=== PATIENT | female | born 1970 ===

== ENCOUNTER → 2024-02-14 16:06 | Outpatient (REF) | payer OTHER, SELFPAY | LOC: CLINIC 16:06 | PROVIDERS: ATTENDING PHYSICIAN Internal Medicine | DX: R73.03 Prediabetes (principal) | CPT/HCPCS: 36415; 83036 ==

== ENCOUNTER → 2024-03-19 18:50 | Outpatient (REF) | payer OTHER, SELFPAY | LOC: WDC 18:50 | PROVIDERS: ATTENDING PHYSICIAN Internal Medicine | DX: Z12.31 Encounter for screening mammogram for malignant neoplasm of breast (principal); I10 Essential (primary) hypertension | CPT/HCPCS: 77063; 77067 ==

== ENCOUNTER 2024-04-25 07:15 | Emergency (ER) | payer SELFPAY ==
[2024-04-25] VITALS (8 sets, daily range): BP systolic 102–144; BP diastolic 66–84
[2024-04-25 07:57] LABS: % Basophils 1.1 % (0-2); % Eosinophils 1.7 % (0-6); % Immature Granulocytes 0.3 % (0-0.5); % Lymphocytes 23.3 % (20.5-51.1); % Monocytes 5.9 % (1.7-9.3); % Neutrophils 67.7 % (42.2-75.2); Absolute Basophils 0.1 10^3/uL (0-0.2); Absolute Eosinophils 0.2 10^3/uL (0-0.7); Absolute Lymphocytes 2.1 10^3/uL (1.2-3.4); Absolute Monocytes 0.5 10^3/uL (0.1-0.6); Hematocrit 41.3 % (37.0-47.0); Hemoglobin 14.6 g/dL (12.0-16.0); Mean Corp Hgb Conc. 35.4 g/dL (33.0-37.0); Mean Corpuscular Hgb 31.2 pg (27.0-31.0); Mean Corpuscular Volume 88.2 fL (81.0-99.0); Mean Platelet Volume 9.1 fL (7.4-10.4); Nucleated Red Blood Cells % 0 %; Platelet Count 327 10^3/uL (130-400); Red Blood Cell Count 4.68 10^6/uL (4.20-5.40); Red Cell Dist. Width 13.2 % (11.5-14.5); White Blood Cell Count 8.9 10^3/uL (4.8-10.8)
--- NOTE | 2024-04-25 07:59 | ED.GENMED ---
History of Present Illness
General
Chief Complaint: Chest Pain
Source: patient, spouse and head waiter/waitress banquet
Time Seen by Provider: 04/25/24 07:37
History of Present Illness
History of Present Illness:
53-year-old female who is primarily Wolof speaking, history obtained via head waiter/waitress banquet presents emergency department complaints of right-sided chest pain also noted in her back that started around 6:15 AM when she stood up. The pain lasted about 15
minutes and now is a very mild residual 'heavy' feeling in the right chest area. She says that she was able to get the pain to 'calm down' by applying oils. She denies associated dyspnea, nausea, vomiting, neck pain, headache, dizziness, jaw pain,
abdominal pain, fever, chills, cough, sore throat, rhinorrhea, leg swelling, recent immobilization, recent trauma. The pain is not pleuritic in nature. Patient denies radiation, exacerbating, relieving factors.
Past History
Past History
ED Past Medical History: HTN
Social History
Tobacco: Non-smoker
Alcohol: None
Personal:
Living: with family
Phy Exam
Physical Exam
Physical Exam:
GENERAL: Alert , in no apparent distress
EYE: pupils equal and reactive
NECK: Supple, no significant adenopathy.
ENT: o/p clr, mmm.
CARDIAC: Regular rate and rhythm .
LUNGS: Clear breath sounds bilaterally, no acute respiratory distress, no wheezes/rales/rhonchi
ABDOMEN: Soft, without focal tenderness, no r/g, no cvat
NEUROLOGICAL: Alert and oriented, no focal neuro deficits
SKIN: Warm and dry, skin intact.
MUSCULOSKELETAL: No edema, well perfused.
PSYCH: Normal and appropriate interaction.
Scores
Heart Score for Chest Pain Patients
STEMI patient?: Not applicable
Course
Orders/Labs/Results
Orders:
Orders
04/25/24 07:16
ECG [Electrocardiogram (*1)] Urgent
Reason for Study: Chest Pain
04/25/24 07:17
EKG- Treatment ONCE
04/25/24 07:50
CMP [Comprehensive Metabolic Panel] Urgent
Complete Blood Count/With Diff Urgent
Lipase Urgent
Troponin I Urgent
04/25/24 08:30
CR Chest - 2 Views Urgent
Comment:
Reason For Exam: r sided chest/back pain
04/25/24 10:46
Electrocardiogram (*1) Urgent
Reason for Study: Chest Pain
EKG- Treatment ONCE
04/25/24 11:01
Troponin I Urgent
04/25/24 11:04
Ketorolac [Toradol] 15 mg IV NOW STA
Abnormal Lab Results
04/25/24
07:50
MCH 31.2 H pg
(27.0-31.0)
Creatinine 0.5 L mg/dL
(0.6-1.0)
Glucose 107 H mg/dl
(70-99)
04/25/24 07:50
04/25/24 07:50
Vital Signs
Initial and Last Documented VS:
Initial Vital Signs
Temp Pulse Resp BP Pulse Ox
98.2 F 81 18 144/84 98
04/25/24 07:21 04/25/24 07:21 04/25/24 07:21 04/25/24 07:21 04/25/24 07:21
Last Documented Vital Signs
Temp Pulse Resp BP Pulse Ox
98.2 F 65 11 109/70 95
04/25/24 07:21 04/25/24 13:00 04/25/24 13:00 04/25/24 13:00 04/25/24 13:00
*Critical Care Note
Total Time (30-74mins, 75-104mins- exclusive of procedures): Not Applicable
Update Note
Update Note:
Patient presents to the Emergency Department with right-sided chest pain
Number and Complexity of Problems Addressed at the Encounter
� Chronic conditions affecting care:
� Acute Exacerbation and/or Progression of Chronic Illness:
� Differential Diagnosis includes: Not limited to atypical nonspecific chest pain, musculoskeletal pain, pleurisy, ACS, pericarditis, etc. etc.
Amount and/or Complexity of Data to be Reviewed and Analyzed
� I performed an independent evaluation of and my interpretation is:
EKG: Read by me, normal sinus rhythm, normal rate, normal axis
CT:
Xrays:read by me, cxr nad, no ptx, no fa, no widened ms
Laboratory Studies:unremarkable
Other:
� Review of other/old records reveals:
� Clinical information was obtained by an independent historian: who is bedside
� Prescriptions/Medications Considered but not given:
� Further testing considered but not performed:
Risk of Complications and/or Morbidity or Mortality of Patient Management
� Social determinants of health affecting care:
� Discussion with other providers (PCP, Hospitalists, Consultants, etc):
� Escalation of care including admission/observation vs risk of discharge considered: reassessment with pt and with upper sorbian interpretor, d/w her results, importance of f/u and reasons to rted. Do not clinnicall suspect
acute emergent cause of sxs such as pe, acs, ptx, etc given atyical sxs, reassuring w/u.
ED Attending Note
-
Portions of this chart may have been created with voice recognition software.� Occasional wrong word or��sound alike� substitutions may have occurred due to the inherent limitations of voice recognition software.
Discharge Plan
Departure
Patient Disposition: Home (Routine Discharge)
Date of Disposition: 04/25/24
Time of Disposition: 13:16
Patient with high blood pressure during this ER visit?: Yes
Condition: Good
Discharge Problem:
Chest pain
Instructions: Chest Pain PCP Follow Up, BLOOD PRESSURE
Referrals:
NONE,* [Family Provider] -
Activity Restrictions/Additional Instructions:
IF YOU DEVELOP INCREASING/NEW/PERSISTENT PAIN, TROUBLE BREATHING, FEVER, VOMITING, OR OTHER WORRISOME SIGNS, GO TO THE ER IMMEDIATELY!
Interventions
Interventions:
*Risk Screen - Suicide Last Done: 04/25/24 07:22
*General Assessment Last Done: 04/25/24 07:22
*Neglect/Abuse Screening Last Done: 04/25/24 07:22
ED- Fall Risk Assessment Last Done: 04/25/24 08:30
*ED COVID-19 Vaccine History Last Done: 04/25/24 07:22
ED- Cardiac Assessment Last Done: 04/25/24 07:46
Discharge Date and Time
Print Language: BENINESE
[2024-04-25 08:09] LABS: ALT (SGPT) 21 U/L (0-35); AST (SGOT) 22 U/L (14-36); Albumin 4.4 g/dl (3.5-5.0); Alkaline Phosphatase 82 U/L (38-126); Blood Urea Nitrogen 14 mg/dl (7-17); Calcium 9.9 mg/dl (8.4-10.2); Carbon Dioxide 30 mmol/L (22-30); Chloride 103 mmol/L (98-107); Glucose 107 mg/dl (70-99); Lipase 59 U/L (23-300); Potassium 3.9 mmol/L (3.5-5.1); Sodium 140 mmol/L (135-145); Total Bilirubin 0.4 mg/dl (0.2-1.3); eGFR > 60.00
[2024-04-25 08:19] LABS: Troponin I < 0.012 ng/ml
[2024-04-25] MEDS: TORADOL 15 MG IV (11:16)
[2024-04-25 11:42] LABS: Troponin I < 0.012 ng/ml
== END 2024-04-25 13:34 | disposition home or self-care (01) ==
LOC: EMR 07:15
PROVIDERS: EMERGENCY PHYSICIAN Emergency Medicine
DX: R07.89 Other chest pain (principal); I10 Essential (primary) hypertension
CPT/HCPCS: 99283; 96374; 71046; 80053; 83690; 84484; 85025; 93005

== ENCOUNTER → 2024-05-18 10:13 | Outpatient (REF) | payer OTHER, SELFPAY ==
[2024-05-18 12:20] LABS: HDL Cholesterol 85 mg/dl; LDL Cholesterol, Calculated 94 mg/dl; Total Cholesterol 192 mg/dl (50-199); Triglyceride 67 mg/dl (10-149); Very Low Density Lipoprotein 13 mg/dl (0-30)
[2024-05-18 12:51] LABS: TSH Reflex To Free T4 0.92 uIU/ml (0.47-4.68)
== END ==
LOC: REG 10:13
PROVIDERS: ATTENDING PHYSICIAN Internal Medicine
DX: R07.89 Other chest pain (principal)
CPT/HCPCS: 36415; 80061; 84443

== ENCOUNTER → 2024-05-25 10:05 | Outpatient (REF) | payer OTHER, SELFPAY | LOC: RAD 10:05 | PROVIDERS: ATTENDING PHYSICIAN Internal Medicine | DX: R07.0 Pain in throat (principal) | CPT/HCPCS: 74221 ==

== ENCOUNTER → 2024-07-03 07:37 | Outpatient (REF) | payer OTHER, SELFPAY ==
[2024-07-03 08:41] LABS: Glycohemoglobin (HgbA1c) 5.6 % (4.0-5.6)
== END ==
LOC: REG 07:37
PROVIDERS: ATTENDING PHYSICIAN Nurse Practitioner Adult Health
DX: R73.03 Prediabetes (principal)
CPT/HCPCS: 83036

== ENCOUNTER → 2025-06-24 15:12 | Outpatient (REF) | payer OTHER, SELFPAY | LOC: WDC 15:12 | PROVIDERS: ATTENDING PHYSICIAN Internal Medicine; FAMILY PHYSICIAN Nurse Practitioner Adult Health | DX: Z12.31 Encounter for screening mammogram for malignant neoplasm of breast (principal) | CPT/HCPCS: 77063; 77067 ==

== ENCOUNTER → 2025-08-06 06:56 | Outpatient (REF) | payer OTHER, SELFPAY ==
[2025-08-06 08:09] LABS: Hematocrit 43.7 % (37.0-47.0); Hemoglobin 15.0 g/dL (12.0-16.0); Mean Corp Hgb Conc. 34.3 g/dL (33.0-37.0); Mean Corpuscular Volume 88.8 fL (81.0-99.0); Nucleated Red Blood Cells % 0 %; Platelet Count 372 10^3/uL (130-400); Red Cell Dist. Width 13.0 % (11.5-14.5); Reticulocyte Count 1.5 % (0.4-2.8)
[2025-08-06 08:36] LABS: ALT (SGPT) 26 U/L (0-35); AST (SGOT) 21 U/L (14-36); Albumin 4.6 g/dl (3.5-5.0); Alkaline Phosphatase 73 U/L (38-126); Blood Urea Nitrogen 21 mg/dl (7-17); Calcium 10.0 mg/dl (8.4-10.2); Carbon Dioxide 31 mmol/L (22-30); Chloride 102 mmol/L (98-107); Glucose 101 mg/dl (70-99); Potassium 4.4 mmol/L (3.5-5.1); Sodium 137 mmol/L (135-145); Total Protein 7.6 g/dl (6.3-8.2); eGFR > 60.00
[2025-08-06 08:51] LABS: Glycohemoglobin (HgbA1c) 5.6 % (4.0-5.9)
== END ==
LOC: CLINIC 06:56
PROVIDERS: ATTENDING PHYSICIAN Internal Medicine
DX: I10 Essential (primary) hypertension (principal)
CPT/HCPCS: 36415; 80053; 83036; 84443; 85025; 85045